=== PATIENT | male | born 1940 | race Caucasian/White ===

== ENCOUNTER 2024-01-10 18:20 | Outpatient (REF) | payer MEDICARE, SELFPAY ==
[2024-01-10 19:51] LABS: Basophils Absolute Auto 0.1 10^3/uL (0.0-0.1); Basophils Percent Auto 0.5 % (0.2-2.0); Bilirubin Urine NEGATIVE (NEGATIVE); Blood Urine LARGE (NEGATIVE); Clarity Urine CLEAR (CLEAR); Color Urine LT. YELLOW (YELLOW); Eosinophils Absolute Auto 0.3 10^3/uL (0.0-0.7); Eosinophils Percent Auto 3.3 % (0.9-7.0); Glucose Urine UA NEGATIVE (NEGATIVE); Hematocrit 37.8 % (42.0-54.0); Immature Granulocytes Abs Auto 0.03 10^3/uL (0.00-0.03); Immature Granulocytes Pct Auto 0.3 % (0.0-0.5); Ketones Urine NEGATIVE (NEGATIVE); Leukocyte Esterase Urine LARGE (NEGATIVE); Lymphocytes Absolute Auto 1.2 10^3/uL (1.2-3.8); Lymphocytes Percent Auto 12.8 % (20.5-60.0); Mean Corpuscular HGB Conc 31.7 g/dL (29.9-35.2); Mean Corpuscular Hemoglobin 29.9 pg (25.9-34.0); Mean Platelet Volume 10.2 fL (9.5-13.5); Monocytes Absolute Auto 0.7 10^3/uL (0.3-0.8); Monocytes Percent Auto 7.5 % (1.7-12.0); Neutrophils Absolute Auto 6.9 10^3/uL (1.4-6.5); Neutrophils Percent Auto 75.6 % (43.0-75.0); Nitrite Urine POSITIVE (NEGATIVE); Platelet Count 260 10^3/uL (150-450); Protein Urine TRACE mg/dL (NEG/TRACE); Red Blood Count 4.02 10^6/uL (4.70-6.10); Red Cell Distribution Width 15.1 % (11.0-15.0); Specific Gravity Urine 1.025 (1.005-1.025); Urobilinogen Urine 0.2 EU/dL (0.2-1.0); White Blood Count 9.1 10^3/uL (4.0-11.0)
== END 2024-01-10 18:21 | disposition home or self-care (01) ==
LOC: LAB 18:20
PROVIDERS: PCP Internal Medicine; Visit Provider Internal Medicine
DX: R41.82 Altered mental status, unspecified (principal)
CPT/HCPCS: 36415; 81003; 85025